=== PATIENT | male | born 1965 | race Caucasian/White ===

== ENCOUNTER 2017-03-06 22:41 | Emergency (ER) | payer SELFPAY ==
[2017-03-06] MEDS: FAMOTIDINE 20 MG INJ IV (23:31)
[2017-03-06] MEDS: DIPHENHYDRAMINE 50 MG INJ IV (23:31)
[2017-03-06] MEDS: METHYLPREDNISOLONE 125 MG INJ IV (23:32)
[2017-03-06] MEDS: SOD CHLORIDE 0.9% 1,000 ML IV (23:32)
== END 2017-03-07 02:41 | disposition home or self-care (01) ==
LOC: E/R 03-07 02:41
DX: J02.9 Acute pharyngitis, unspecified (principal); R06.00 Dyspnea, unspecified; E11.9 Type 2 diabetes mellitus without complications; Z79.84 Long term (current) use of oral hypoglycemic drugs
CPT/HCPCS: 82962; 96374; 96375; 99284-25

== ENCOUNTER 2018-06-20 09:46 | Emergency (ER) | payer SELFPAY ==
[2018-06-20 10:28] LABS: ADD MAN DIFF? NO
[2018-06-20 10:31] LABS: WHITE BLOOD COUNT 8.3 10^3/ul (4.8-10.8)
[2018-06-20 10:31] LABS: ABNORMAL IP MESSAGE 1; BASOPHIL # 0.1 10^3/ul (0.0-0.1); BASOPHILS % 0.7 % (0.0-2.0); EOSINOPHILS # 0.6 10^3/ul (0.0-0.5); EOSINOPHILS % 7.5 % (0.0-7.0); HEMATOCRIT 46.1 % (42.0-52.0); HEMOGLOBIN 15.5 g/dl (14.0-18.0); LYMPHOCYTES # 5.3 10^3/ul (0.8-2.9); LYMPHOCYTES % 63.6 % (15.0-51.0); MEAN CORPUSCULAR HEMOGLOBIN 30.6 pg (29.0-33.0); MEAN CORPUSCULAR HGB CONC 33.6 g/dl (32.0-37.0); MEAN CORPUSCULAR VOLUME 91.1 fl (82.0-101.0); MEAN PLATELET VOLUME 10.8 fl (7.4-10.4); MONOCYTE # 0.3 10^3/ul (0.3-0.9); MONOCYTES % 4.1 % (0.0-11.0); NEUTROPHILS % 23.6 % (39.0-77.0); PLATELET COUNT 262 10^3/UL (140-415); POSITIVE DIFF @See below; RED BLOOD COUNT 5.06 10^6/ul (4.70-6.10); RED CELL DISTRIBUTION WIDTH 12.6 % (11.5-14.5)
[2018-06-20] MEDS: FAMOTIDINE 20 MG INJ IV (10:38)
[2018-06-20] MEDS: METHYLPREDNISOLONE 125 MG INJ IV (10:38)
[2018-06-20] MEDS: EPINEPHrine 1 MG INJ IM (10:38)
[2018-06-20] MEDS: DIPHENHYDRAMINE 50 MG INJ IV (10:39)
[2018-06-20] MEDS: SOD CHLORIDE 0.9% 1,000 ML IV (10:39)
[2018-06-20 10:49] LABS: ANION GAP 11 (5-13); BLOOD UREA NITROGEN 17 mg/dl (7-20); CALCIUM 9.2 mg/dl (8.4-10.2); CARBON DIOXIDE 21 mmol/L (21-31); CHLORIDE 108 mmol/L (97-110); CREATININE 0.74 mg/dl (0.61-1.24); Estimated GFR > 60 mL/min (>60); GLUCOSE 205 mg/dl (70-220); POTASSIUM 4.1 mmol/L (3.5-5.1); SODIUM 140 mmol/L (135-144)
== END 2018-06-20 13:13 | disposition home or self-care (01) ==
LOC: E/R 09:46
DX: R23.2 Flushing (principal); E11.9 Type 2 diabetes mellitus without complications; T36.0X5A Adverse effect of penicillins, initial encounter; Z79.84 Long term (current) use of oral hypoglycemic drugs
CPT/HCPCS: 80048; 82962; 85025; 93005; 96372; 96374; 96375; 99284-25